=== PATIENT | female | born 1975 | race American Indian/Alaskan Native ===

== ENCOUNTER 2018-03-23 17:32 | Emergency (ER) | payer BC ==
[2018-03-23 17:46] VITALS: BMI 20.7
[2018-03-23 17:49] VITALS: RESP 18; TEMP 99.4
--- NOTE | 2018-03-23 18:01 | C.PDOC ---
History Of Present Illness 42 y/o female presents to the ED complaining of right sided low back pain that began a week ago. Patient denies any weakness, numbness, tingling, incontinence , recent trauma or injuries. Time Seen by Provider: 03/23/18 17:55 Chief Complaint (Nursing): Back Pain History Per: Patient History/Exam Limitations: no limitations Onset/Duration Of Symptoms: Days Current Symptoms Are (Timing): Still Present Associated Symptoms: denies: Incontinence, New Weakness, New Numbness Exacerbating Factor(s): Movement Past Medical History Reviewed: Historical Data, Nursing Documentation, Vital Signs Vital Signs: Last Vital Signs Temp 99.4 F 03/23/18 17:47 Pulse 57 L 03/23/18 19:44 Resp 18 03/23/18 19:44 BP 102/66 03/23/18 19:44 Pulse Ox 100 03/23/18 19:56 - Medical History PMH: HTN Surgical History: No Surg Hx Family History: States: No Known Family Hx - Social History Hx Alcohol Use: No Hx Substance Use: No - Immunization History Hx Tetanus Toxoid Vaccination: Yes Hx Influenza Vaccination: No Hx Pneumococcal Vaccination: No Review Of Systems Except As Marked, All Systems Reviewed And Found Negative. Genitourinary: Negative for: Incontinence Musculoskeletal: Positive for: Back Pain (Right sided) Neurological: Negative for: Weakness, Numbness Physical Exam - Physical Exam Appears: Non-toxic, No Acute Distress Skin: Normal Color, Warm, Dry Head: Atraumatic, Normacephalic Eye(s): bilateral: Normal Inspection Oral Mucosa: Moist Neck: Normal ROM, Supple Cardiovascular: Rhythm Regular Respiratory: Normal Breath Sounds, No Rales, No Rhonchi, No Wheezing Back: No Normal Inspection, Paraspinal Tenderness (Right sided), Other ( Tenderness to LS spine ) Extremity: Normal ROM Neurological/Psych: Oriented x3, Normal Speech Gait: Steady ED Course And Treatment O2 Sat by Pulse Oximetry: 100 (RA) Pulse Ox Interpretation: Normal Progress Note: Orders: XR LS spine. Toradol 60mg IM. Lidocaine. On re- evaluation patient feels better, ambulatory and is stable to be d/c home. Disposition - Disposition Referrals: Jacek Watts MD [Staff Provider] - Disposition: HOME/ ROUTINE Disposition Time: 19:55 Condition: STABLE Additional Instructions: Follow up with PMD within 1-2 days. Return to ED if feel worse. 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 - Scribe Statement The provider has reviewed the documentation as recorded by the Scribe Cary Gifford All medical record entries made by the Chris were at my direction and personally dictated by me. I have reviewed the chart and agree that the record accurately reflects my personal performance of the history, physical exam, medical decision making, and the department course for this patient. I have also personally directed, reviewed, and agree with the discharge instructions and disposition.
[2018-03-23] MEDS ORDERED: Lidocaine 5% Patch TD STA (18:08)
[2018-03-23] MEDS ORDERED: Lidocaine 5% Patch TD ONE (18:21)
[2018-03-23 19:45] VITALS: BP 102/66; PULSE 57
[2018-03-23 19:57] VITALS: O2SAT 100
--- NOTE | 2018-03-24 09:55 | RAD ---
PROCEDURE: Radiographs of the Lumbar Spine. HISTORY: atraumatic low back pain, LMP 1 wk ago COMPARISON: No prior. FINDINGS: BONES: Normal scoliosis without secondary degenerative change. DISC SPACES: Unremarkable. OTHER FINDINGS: None. IMPRESSION: No acute findings related to/accounting for the clinical presentation.
== END 2018-03-23 20:02 | disposition home or self-care (01) ==
LOC: C.ER 17:32
DX: M54.5 Low back pain (principal)
CPT/HCPCS: 72100; 96372; 99283; J1885